=== PATIENT | male | born 1960 ===

== ENCOUNTER → 2022-07-31 | Outpatient (CLI) | payer OTHER | END | disposition home or self-care (01) | LOC: SONOGRAMA 11:32 | PROVIDERS: ATTEND Internal Medicine | DX: N40.1 Benign prostatic hyperplasia with lower urinary tract symptoms (principal); Z12.2 Encounter for screening for malignant neoplasm of respiratory organs ==

== ENCOUNTER 2022-08-03 12:23 | Outpatient (CLI) | payer OTHER | END 2022-08-03 12:26 | disposition home or self-care (01) | LOC: NUCLEAR 12:23 | PROVIDERS: ATTEND Internal Medicine | DX: M81.0 Age-related osteoporosis without current pathological fracture (principal) ==

== ENCOUNTER 2024-06-18 09:05 | Outpatient (CLI) | payer OTHER | END 2024-06-18 09:06 | disposition home or self-care (01) | LOC: NUCLEAR 09:05 | PROVIDERS: ATTEND Internal Medicine | DX: R00.2 Palpitations (principal) ==